=== PATIENT | female | born 1930 | race Caucasian/White ===

== ENCOUNTER 2017-12-16 11:46 | Inpatient (IN) ==
[2017-12-16 12:08] LABS: Basophils % 0.1 %; Eosinophils # 0.1 K/mcL (0.0-0.6); Eosinophils % 0.5 %; Hematocrit 32.7 % (35.3-44.9); Hemoglobin 11.4 g/dL (11.5-15.4); Immature Granulocytes % 0.7 % (0-4); Lymphocytes # 0.8 K/mcL (0.6-4.6); Lymphocytes % 7.3 %; Mean Corpuscular HGB Conc 34.9 g/dL (31.6-35.5); Mean Corpuscular Hemoglobin 30.2 pg (28.0-33.3); Mean Corpuscular Volume 86.5 fL (83.0-100.0); Mean Platelet Volume 7.8 fL (9.4-12.4); Monocytes # 1.6 K/mcL (0.0-1.3); Monocytes % 14.6 %; Neutrophils # 8.2 K/mcL (1.6-8.9); Platelet Count 347 K/mcL (140-400); Red Blood Count 3.78 M/mcL (3.82-4.97); Red Cell Distribution Width 12.7 % (11.5-14.5); Segmented Neutrophils % 76.8 %
[2017-12-16 12:16] LABS: INR 1.2; Prothrombin Time 13.8 Seconds (9.4-12.1)
--- NOTE | 2017-12-16 12:20 | Emergency Department Note ---
Disposition Forms: ED Satisfaction Letter Recheck wound or abnormal lab - General Chief Complaint: ED Recheck/Abnormal Lab/Rx Stated Complaint: LOW SODIUM Time Seen by Provider: 12/16/17 11:48 Source: patient Limitations: no limitations - Related Data Home Medications Medication Instructions Recorded Confirmed Atenolol [Tenormin] 50 mg PO BID 11/03/17 11/03/17 Gabapentin [Neurontin] 100 mg PO HS 11/03/17 11/03/17 Insulin Glargine [Lantus] 10 unit SQ HS 11/03/17 11/03/17 Polyethylene Glycol 3350 [MiraLAX] 17 gm PO DAILY 11/03/17 11/03/17 Ropinirole HCl [Requip] 0.25 mg PO HS 11/03/17 11/03/17 Saxagliptin HCl [Onglyza] 2.5 mg PO DAILY 11/03/17 11/03/17 Previous Rx's Medication Instructions Recorded HYDROcodone/Acet 5/325 mg [[place] 1 tab PO Q6H PRN 3 Days #10 tab 11/03/17 5-325 mg] Allergies Allergy/AdvReac Type Severity Reaction Status Date / Time codeine AdvReac Irritable Verified 11/03/17 17:50 dextromethorphan AdvReac Chest Pain Verified 11/03/17 17:50 [From Capmist DM] guaifenesin [From Capmist DM] AdvReac Chest Pain Verified 11/03/17 17:50 pseudoephedrine AdvReac Chest Pain Verified 11/03/17 17:50 [From Capmist DM] LOD AdvReac Hives Uncoded 12/16/17 11:47 Past Medical History - Past Medical History Medical history: Reports: arthritis, cancer, diabetes, glaucoma, hypertension, other Surgical history: Reports: appendectomy, cancer surgery (Facial skin cancer), cataract, cholecystectomy, orthopedic, other (Rotator cuff right shoulder) Psychiatric history: Reports: no psych history - Social History Smoking Status: Never smoker Alcohol use: Reports: none Drug use: Reports: none Physical Exam - General Limitations: no limitations General appearance: alert, in no apparent distress Course Vital Signs Temperature 97.8 F 12/16/17 11:48 Pulse Rate 71 12/16/17 11:48 Respiratory Rate 16 12/16/17 11:48 Blood Pressure 146/75 12/16/17 11:48 O2 Sat by Pulse Oximetry 97 12/16/17 11:48 Temperature 97.8 F 12/16/17 11:48 Pulse Rate 71 12/16/17 11:48 Respiratory Rate 16 12/16/17 11:48 Blood Pressure 146/75 12/16/17 11:48 O2 Sat by Pulse Oximetry 97 12/16/17 11:48 Oxygen Delivery Oxygen Delivery Room Air Recheck wound or abnormal lab - Lab Data Result diagrams: 12/16/17 12:05 Lab Results 12/16/17 Range/Units 12:05 WBC 10.7 (4.3-11.1) K/mcL RBC 3.78 L (3.82-4.97) M/mcL Hgb 11.4 L (11.5-15.4) g/dL Hct 32.7 L (35.3-44.9) % MCV 86.5 (83.0-100.0) fL MCH 30.2 (28.0-33.3) pg MCHC 34.9 (31.6-35.5) g/dL RDW 12.7 (11.5-14.5) % Plt Count 347 (140-400) K/mcL MPV 7.8 L (9.4-12.4) fL Immature Gran % 0.7 (0-4) % Seg Neutrophils % 76.8 % Lymphocytes % 7.3 % Monocytes % 14.6 % Eosinophils % 0.5 % Basophils % 0.1 % Neutrophils # 8.2 (1.6-8.9) K/mcL Lymphocytes # 0.8 (0.6-4.6) K/mcL Monocytes # 1.6 H (0.0-1.3) K/mcL Eosinophils # 0.1 (0.0-0.6) K/mcL Basophils # 0.0 (0.0-0.2) K/mcL
[2017-12-16 12:24] LABS: Alanine Aminotransferase 14 Units/L (7-52); Albumin 3.4 g/dL (3.5-5.7); Albumin/Globulin Ratio 0.9 (1.1-2.2); Alkaline Phosphatase 66 Units/L (34-104); Aspartate Amino Transferase 15 Units/L (13-39); BUN/Creatinine Ratio 18 (6-26); Bilirubin,Total 0.6 mg/dL (0.3-1.0); Blood Urea Nitrogen 14 mg/dL (8-23); Calcium 8.9 mg/dL (8.6-10.3); Carbon Dioxide 25 mEq/L (23-29); Chloride 88 mEq/L (98-107); Globulin 3.8 g/dL (2.4-3.5); Glucose 184 mg/dL (70-105); Osmolality,Calculated 257 (280-300); Potassium 4.7 mEq/L (3.5-5.1); Sodium 121 mEq/L (136-145); Total Protein 7.2 g/dL (6.4-8.9); eGFR For Non-African Americans > 60 (> 60)
[2017-12-16] MEDS ORDERED: 0.9 % Sodium Chloride 1,000 ML IVC SCH (14:31)
[2017-12-16] MEDS ORDERED: *HR* HYDROcodone/Acet 5/325 mg TABLET PO PRN (14:31)
[2017-12-16] MEDS ORDERED: Naloxone 0.4 MG/ML INJ IVP PRN (14:31)
--- NOTE | 2017-12-16 15:30 | Internal Med History&Physical ---
Date of Encounter: 12/16/17 Time of Encounter: 14:50 Assessment and Plan (1) Hyponatremia Current visit: Yes Status: Acute Suspect SIADH. Will order urine osmolality. (2) Headache Current visit: Yes Status: Acute Order head CT to further evaluate. Qualifiers: Headache type: unspecified Headache chronicity pattern: acute headache Intractability: intractable Qualified Code(s): R51 - Headache (3) Neck pain Current visit: Yes Status: Acute Order cervical spine CT to further evaluate. (4) Hypertension Current visit: Yes Status: Chronic Continue atenolol and monitor blood pressure. Qualifiers: Hypertension type: essential hypertension Qualified Code(s): I10 - Essential (primary) hypertension (5) DM type 2 (diabetes mellitus, type 2) Current visit: Yes Status: Chronic Continue Lantus/Levemir and Onglyza. Order Accu-Cheks with SSI. Qualifiers: Diabetes mellitus termite control service representative insulin use: with termite control service representative use Diabetes mellitus complication status: without complication Qualified Code(s): E11.9 - Type 2 diabetes mellitus without complications; Z79.4 - skilled nursing (current) use of insulin (6) Anemia Current visit: Yes Status: Acute Order anemia testing in a.m. Suspect due to daily use of aspirin 81 mg. Qualifiers: Anemia type: unspecified type Qualified Code(s): D64.9 - Anemia, unspecified (7) Cough Current visit: Yes Status: Acute Order chest CT to further evaluate. Internal Medicine - H&P: HPI Chief complaint: Hyponatremia Admitted From: Emergency Dept Plans for Post Hospital Care: Home History of present illness: Ms. Pastrana is a 87 year old female who was told to come to emergency room by her PCP Dr. Pereira after outpatient lab work showed hyponatremia with sodium level of 122. She had confirmed hyponatremic in emergency room with sodium 121. She was admitted to [facility] floor for ongoing care needs. She had mild hyponatremia on October 2017 labs with sodium levels of 129 and 131. She denies change in medication other than use of tramadol starting October 2017 which was prescribed for knee pain. Her last dose was December 13. She has had no excessive fluid ingestion or vomiting or diarrhea. She reports she has had constant headache with decreased hearing in her right ear for approximately 2 months. She has had sharp pain in her right neck for approximately he 6 weeks. She denies trauma or vision changes. Past Med Surg Social Fam HX - Past Medical History Medical history: arthritis, cancer, diabetes, glaucoma, hypertension, other Additional medical history: sleep apnea Psychiatric history: no psych history - Past Surgical History Surgical History: appendectomy, cancer surgery (Facial skin cancer), cataract, cholecystectomy, orthopedic, other (Rotator cuff right shoulder) Additional surgical history: right shoulder rotator cuff. cataract removal bilaterally. cancer removed from face - Social History Smoking Status: Never smoker Alcohol use: none Drug use: none Internal Medicine - H&P: Meds Atenolol [Tenormin] 50 mg PO BID 11/03/17 [History] Gabapentin [Neurontin] 100 mg PO HS 11/03/17 [History] HYDROcodone/Acet 5/325 mg [[place] 5-325 mg] 1 tab PO Q6H PRN 3 Days #10 tab 11/03 [Rx] Insulin Glargine [Lantus] 10 unit SQ HS 11/03/17 [History] Polyethylene Glycol 3350 [MiraLAX] 17 gm PO DAILY 11/03/17 [History] Ropinirole HCl [Requip] 0.25 mg PO HS 11/03/17 [History] Saxagliptin HCl [Onglyza] 2.5 mg PO DAILY 11/03/17 [History] 3 Allergy/AdvReac Type Severity Reaction Status Date / Time codeine AdvReac Irritable Verified 11/03/17 17:50 dextromethorphan AdvReac Chest Pain Verified 11/03/17 17:50 [From Capmist DM] guaifenesin [From Capmist DM] AdvReac Chest Pain Verified 11/03/17 17:50 pseudoephedrine AdvReac Chest Pain Verified 11/03/17 17:50 [From Capmist DM] LOD AdvReac Hives Uncoded 12/16/17 11:47 All Systems PM: A 10-system review of systems was performed and is negative for pertinent findings except as documented above in the HPI. Review of systems: Gen.: She states her weight has been stable the past few months Cardiovascular: She has history of hypertension but denies [place] heart failure angina DVT or pulmonary embolus. She had Regadenoson EST 06/29/2015 which showed no EKG or perfusion evidence of ischemia. LVEF was greater than 70%. Respiratory: She is a lifelong nonsmoker and has no known chronic lung disease. She has PRIYA and uses CPAP at bedtime GI: She has had cholecystectomy. She has irritable bowel syndrome which is minimally symptomatic. She reports colonoscopy in 2016 was generally unremarkable. 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 She denies large distribution strokes or seizures. Endocrine: She was diagnosed with DM 2 approximate 20 years ago. She denies thyroid disease or hyperlipidemia. Hematology/oncology: She denies blood disorders or cancers. She had anemia on labs in emergency room. Psychiatric: She denies anxiety depression or other mental health issues. [place] skeletal: She has DJD. She was at [facility] respite for several days October 2017 for pain in her knees. She denies gout or other bone joint or muscle disorders. - Constitutional Vitals: Temp Pulse Resp BP Pulse Ox 98.5 F 66 15 132/57 94 12/16/17 14:34 12/16/17 14:34 12/16/17 14:34 12/16/17 14:34 12/16/17 14:34 Exam: Gen.: She is a well-developed well-nourished female who appears in minimal distress at present time HEENT: Head is atraumatic and normocephalic. Eyes: EOMI. There is no scleral icterus. Mouth: Mucosa is moist. Ears: She has unremarkable external canals and TMs bilaterally. Neck: Supple. There is no pain on gentle flexion of the neck. She has reproduction of right neck pain pain on rotation of the head to the far left or far right. There is no thyromegaly or adenopathy noted. Heart: Regular without murmurs gallops or ectopics Lungs: No wheezes or crackles are heard. Abdomen: Soft and nontender. No masses or guarding are noted. Extremities: There is no cyanosis edema or clubbing noted. Dorsalis pedis and posttibial pulses are trace palpable bilaterally. Neurologic: Mental status: She is talkative and a good historian. Cranial nerves: Smile is symmetric. Forehead wrinkles bilaterally. Tongue protrudes midline. EOMI. Motor: There is no pronator drift. Cerebellar: Finger to nose is intact bilaterally. Skin: Warm and dry Internal Med - H&P Results - Labs CBC & Chem 7: 12/16/17 12:05 12/16/17 12:02
[2017-12-16] MEDS: 0.9 % Sodium Chloride 1,000 ML IVC SCH (15:40)
[2017-12-16 19:52] LABS: Bilirubin,Urine Negative (Negative); Blood,Urine Negative (Negative); Clarity,Urine Clear (Clear); Color,Urine Yellow (Yellow); Glucose,Urine (UA) >=1000 mg/dL (Normal); Ketones,Urine Negative (Negative); Leukocyte Esterase,Urine Negative (Negative); Nitrite,Urine Negative (Negative); Protein,Urine 30 mg/dL (Neg-Trace); Specific Gravity,Urine 1.015 (1.010-1.025); Urobilinogen,Urine Normal (Normal)
[2017-12-16 19:59] LABS: Hyaline Casts,Urine Few per lpf (None-Few); Squamous Epithelial Cell,Urine Moderate per lpf (None-Few)
[2017-12-16 20:00] LABS: Bacteria,Urine Moderate per hpf (None-Few); Mucus,Urine Moderate (Few); RBC,Urine 0-3 per hpf (0-3); WBC,Urine 0-3 per hpf (0-3)
[2017-12-16] MEDS: Gabapentin 100 MG CAPSULE PO SCH (21:21)
[2017-12-16] MEDS: rOPINIRole 0.25 MG TABLET PO SCH (21:21)
[2017-12-16 21:24] LABS: BUN/Creatinine Ratio 14 (6-26); Blood Urea Nitrogen 13 mg/dL (8-23); Calcium 8.3 mg/dL (8.6-10.3); Carbon Dioxide 26 mEq/L (23-29); Chloride 89 mEq/L (98-107); Glucose 147 mg/dL (70-105); Osmolality,Calculated 251 (280-300); Potassium 4.1 mEq/L (3.5-5.1); Sodium 119 mEq/L (136-145); eGFR For Non-African Americans 60 (> 60)
[2017-12-16] MEDS: Insulin DETEMIR 100 UNIT/ML X5UNITS SQ SCH (21:27)
[2017-12-16] MEDS: cefTRIAXone 1,000 MG in Water for inj. (sterile) 20 ML 10 ML IVPB SCH (23:03)
[2017-12-16] MEDS: Azithromycin 500 MG in D5% in Water 250 ML IVPB SCH (23:04)
[2017-12-17] MEDS: 0.9 % Sodium Chloride 1,000 ML IVC SCH ×2 (02:55→16:41)
[2017-12-17 05:27] LABS: Basophils % 0.2 %; Eosinophils # 0.1 K/mcL (0.0-0.6); Eosinophils % 0.7 %; Hematocrit 30.7 % (35.3-44.9); Hemoglobin 10.7 g/dL (11.5-15.4); Immature Granulocytes % 0.9 % (0-4); Lymphocytes # 0.8 K/mcL (0.6-4.6); Lymphocytes % 8.4 %; Mean Corpuscular HGB Conc 34.9 g/dL (31.6-35.5); Mean Corpuscular Hemoglobin 30.4 pg (28.0-33.3); Mean Corpuscular Volume 87.2 fL (83.0-100.0); Mean Platelet Volume 8.3 fL (9.4-12.4); Monocytes # 1.1 K/mcL (0.0-1.3); Monocytes % 12.6 %; Neutrophils # 6.9 K/mcL (1.6-8.9); Platelet Count 349 K/mcL (140-400); Red Blood Count 3.52 M/mcL (3.82-4.97); Red Cell Distribution Width 12.9 % (11.5-14.5); Segmented Neutrophils % 77.2 %
[2017-12-17 05:49] LABS: BUN/Creatinine Ratio 15 (6-26); Blood Urea Nitrogen 11 mg/dL (8-23); Calcium 8.3 mg/dL (8.6-10.3); Carbon Dioxide 25 mEq/L (23-29); Chloride 89 mEq/L (98-107); Glucose 119 mg/dL (70-105); Osmolality,Calculated 253 (280-300); Potassium 4.2 mEq/L (3.5-5.1); Sodium 121 mEq/L (136-145); eGFR For Non-African Americans > 60 (> 60)
[2017-12-17 05:57] LABS: Thyroid Stimulating Hormone 1.808 mcIU/mL (0.340-5.600)
[2017-12-17] MEDS: Lactobacillus 1 EACH CAP.SPRINK PO SCH ×2 (09:12→20:35)
[2017-12-17] MEDS: ONGLYZA 2.5 MG PO SCH (09:13)
[2017-12-17] MEDS: cefTRIAXone 1,000 MG in Water for inj. (sterile) 20 ML 10 ML IVPB SCH (09:13)
--- NOTE | 2017-12-17 09:58 | Internal Med Progress Note ---
Date of Encounter: 12/17/17 Time of Encounter: 09:50 - Assessment and plan (1) Hyponatremia Current Visit: Yes Status: Acute Assessment and plan: December 17. Urine osmolality pending. Serum sodium unchanged at 121 today. Continue normal saline IV for now. (2) Headache Current Visit: Yes Status: Acute Assessment and plan: December 17. Head CT unremarkable. Continue analgesics as prescribed. Qualifiers: Headache type: unspecified Headache chronicity pattern: acute headache Intractability: intractable Qualified Code(s): R51 - Headache (3) Neck pain Current Visit: Yes Status: Acute Assessment and plan: December 17. Cervical CT unremarkable. Continue analgesics. (4) Hypertension Current Visit: Yes Status: Chronic Assessment and plan: December 17. Continue atenolol. Qualifiers: Hypertension type: essential hypertension Qualified Code(s): I10 - Essential (primary) hypertension (5) DM type 2 (diabetes mellitus, type 2) Current Visit: Yes Status: Chronic Assessment and plan: December 17. Continue Levemir and Onglyza and Accu-Cheks with SSI. Qualifiers: Diabetes mellitus penitentiary insulin use: with transcription specialist use Diabetes mellitus complication status: without complication Qualified Code(s): E11.9 - Type 2 diabetes mellitus without complications; Z79.4 - body corporate manager (current) use of insulin (6) Anemia Current Visit: Yes Status: Acute Assessment and plan: December 17. Anemia testing showed iron 19, transferrin saturation 9%, transferrin 157, ferritin 270, B12 1266, and folate 12.0. Start ferrous sulfate with vitamin C in a.m. Qualifiers: Anemia type: unspecified type Qualified Code(s): D64.9 - Anemia, unspecified (7) Cough Current Visit: Yes Status: Acute Assessment and plan: December 17. Chest CT showed irregular opacity in the right upper lobe favoring inflammatory process or infection. Rocephin and Zithromax with lactobacillus were started yesterday. Continue antibiotics and monitor labs. Short-term noncontrast chest CT follow-up in 3 months recommended. - Subjective Interval history: December 17. She states she thinks her vision is slightly decreased but has no other new complaints. - Constitutional Vitals: Temp Pulse Resp BP Pulse Ox 98.4 F 71 16 129/61 98 12/17/17 03:00 12/17/17 07:19 12/17/17 07:19 12/17/17 07:19 12/17/17 07:19 Exam: She is resting comfortably in bed and appears in no acute distress. Her affect is bright and cheerful. I reviewed her medications. I discussed pertinent lab and CT findings with her. Internal Medicine: Result - Labs CBC & Chem 7: 12/17/17 04:50 12/17/17 04:50 Labs: Short CBC 12/17/17 Range/Units 04:50 WBC 8.9 (4.3-11.1) K/mcL Hgb 10.7 L (11.5-15.4) g/dL Hct 30.7 L (35.3-44.9) % Plt Count 349 (140-400) K/mcL Neutrophils # 6.9 (1.6-8.9) K/mcL BMP 12/16/17 12/17/17 20:47 04:50 Sodium 119 L* 121 L Potassium 4.1 4.2 Chloride 89 L 89 L Carbon Dioxide 26 25 BUN 13 11 Creatinine 0.90 0.72 Glucose 147 H 119 H Calcium 8.3 L 8.3 L Urine 12/16/17 Range/Units 18:40 Urine Color Yellow (Yellow) Urine Clarity Clear (Clear) Urine pH 7.0 (5.0-8.0) pH Units Ur Specific [place] 1.015 (1.010-1.025) Urine Protein 30 H (Neg-Trace) mg/dL Urine Glucose (UA) >=1000 H (Normal) mg/dL - ABG Interpretation ABG results: PT/INR, D-dimer PT 13.8 Seconds (9.4-12.1) H 12/16/17 12:02 - Impressions Impressions Chest CT 12/16/17 15:20 IMPRESSION: Irregular opacity in the right upper lobe favoring an inflammatory process or infection. Short-term noncontrast chest CT follow-up in 3 months is recommended to ensure resolution and exclude neoplastic disease. D/ / Patricio Dangelo / Patricio Dangelo Interpreting Provider: Patricio Dangelo Head CT 12/16/17 15:21 IMPRESSION: No acute intracranial abnormality. D/ / Henri Cifuentes MD / Henri Cifuentes MD Interpreting Provider: Henri Cifuentes MD Cervical Spine CT 12/16/17 15:22 IMPRESSION: No acute abnormality of the cervical spine. D/ / Patricio Dangelo / Patricio Dangelo Interpreting Provider: Patricio Dangelo Consult Discharge Plan - Plan Referrals: Champ Pereira DO [Primary Care Provider] - 1 week
[2017-12-17] MEDS ORDERED: 0.9 % Sodium Chloride 1,000 ML ONE (16:37)
[2017-12-17] MEDS: Insulin DETEMIR 100 UNIT/ML X5UNITS SQ SCH (20:35)
[2017-12-17] MEDS: rOPINIRole 0.25 MG TABLET PO SCH (20:35)
[2017-12-17] MEDS: Gabapentin 100 MG CAPSULE PO SCH (20:35)
[2017-12-17] MEDS: Azithromycin 500 MG in D5% in Water 250 ML IVPB SCH (22:31)
[2017-12-18] MEDS: 0.9 % Sodium Chloride 1,000 ML IVC SCH (04:15)
[2017-12-18] MEDS: Ascorbic Acid 500 MG TABLET PO SCH (06:20)
[2017-12-18 06:33] LABS: Basophils % 0.2 %; Eosinophils % 0.1 %; Hematocrit 27.6 % (35.3-44.9); Hemoglobin 9.7 g/dL (11.5-15.4); Immature Granulocytes % 0.7 % (0-4); Lymphocytes # 0.6 K/mcL (0.6-4.6); Lymphocytes % 7.9 %; Mean Corpuscular HGB Conc 35.1 g/dL (31.6-35.5); Mean Corpuscular Hemoglobin 30.8 pg (28.0-33.3); Mean Corpuscular Volume 87.6 fL (83.0-100.0); Mean Platelet Volume 8.4 fL (9.4-12.4); Monocytes # 1.1 K/mcL (0.0-1.3); Monocytes % 13.9 %; Neutrophils # 6.2 K/mcL (1.6-8.9); Platelet Count 285 K/mcL (140-400); Red Blood Count 3.15 M/mcL (3.82-4.97); Red Cell Distribution Width 12.8 % (11.5-14.5); Segmented Neutrophils % 77.2 %
[2017-12-18 06:54] LABS: BUN/Creatinine Ratio 16 (6-26); Blood Urea Nitrogen 10 mg/dL (8-23); Calcium 7.9 mg/dL (8.6-10.3); Carbon Dioxide 23 mEq/L (23-29); Chloride 94 mEq/L (98-107); Glucose 99 mg/dL (70-105); Osmolality,Calculated 253 (280-300); Potassium 4.1 mEq/L (3.5-5.1); Sodium 122 mEq/L (136-145); eGFR For Non-African Americans > 60 (> 60)
[2017-12-18] MEDS: cefTRIAXone 1,000 MG in Water for inj. (sterile) 20 ML 10 ML IVPB SCH (08:54)
[2017-12-18] MEDS: Lactobacillus 1 EACH CAP.SPRINK PO SCH ×2 (08:54→20:53)
[2017-12-18] MEDS: ONGLYZA 2.5 MG PO SCH (08:55)
--- NOTE | 2017-12-18 12:52 | Internal Med Progress Note ---
Date of Encounter: 12/18/17 Time of Encounter: 12:45 - Assessment and plan (1) Hyponatremia Current Visit: Yes Status: Acute Assessment and plan: December 17. Urine osmolality pending. Serum sodium unchanged at 121 today. Continue normal saline IV for now. December 18. 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 Will start salt tablets and Samsca. (2) Headache Current Visit: Yes Status: Acute Assessment and plan: December 17. Head CT unremarkable. Continue analgesics as prescribed. December 18. Will schedule Tylenol. Qualifiers: Headache type: unspecified Headache chronicity pattern: acute headache Intractability: intractable Qualified Code(s): R51 - Headache (3) Neck pain Current Visit: Yes Status: Acute Assessment and plan: December 17. Cervical CT unremarkable. Continue analgesics. December 18. As above (4) Hypertension Current Visit: Yes Status: Chronic Assessment and plan: December 17. Continue atenolol. Qualifiers: Hypertension type: essential hypertension Qualified Code(s): I10 - Essential (primary) hypertension (5) DM type 2 (diabetes mellitus, type 2) Current Visit: Yes Status: Chronic Assessment and plan: December 17. Continue Levemir and Onglyza and Accu-Cheks with SSI. Qualifiers: Diabetes mellitus rodent exterminator insulin use: with rodent exterminator use Diabetes mellitus complication status: without complication Qualified Code(s): E11.9 - Type 2 diabetes mellitus without complications; Z79.4 - senior care (current) use of insulin (6) Anemia Current Visit: Yes Status: Acute Assessment and plan: December 17. Anemia testing showed iron 19, transferrin saturation 9%, transferrin 157, ferritin 270, B12 1266, and folate 12.0. Start ferrous sulfate with vitamin C in a.m. Qualifiers: Anemia type: unspecified type Qualified Code(s): D64.9 - Anemia, unspecified (7) Cough Current Visit: Yes Status: Acute Assessment and plan: December 17. Chest CT showed irregular opacity in the right upper lobe favoring inflammatory process or infection. Rocephin and Zithromax with lactobacillus were started yesterday. Continue antibiotics and monitor labs. Short-term noncontrast chest CT follow-up in 3 months recommended. - Subjective Interval history: December 17. She states she thinks her vision is slightly decreased but has no other new complaints. December 18. She has no new complaints. She denies significant change since yesterday. - Constitutional Vitals: Temp Pulse Resp BP Pulse Ox 98.1 F 79 15 146/67 96 12/18/17 09:00 12/18/17 09:00 12/18/17 09:00 12/18/17 09:00 12/18/17 09:00 Exam: She is resting comfortable on the side of bed and appears in no acute distress. She does have occasional wince stating there is pain in her neck. Her affect is overall cheerful. I reviewed her medications and lab results. Internal Medicine: Result - Labs CBC & Chem 7: 12/18/17 05:45 12/18/17 05:45 Labs: Short CBC 12/18/17 Range/Units 05:45 WBC 8.1 (4.3-11.1) K/mcL Hgb 9.7 L (11.5-15.4) g/dL Hct 27.6 L (35.3-44.9) % Plt Count 285 (140-400) K/mcL Neutrophils # 6.2 (1.6-8.9) K/mcL BMP 12/18/17 05:45 Sodium 122 L Potassium 4.1 Chloride 94 L Carbon Dioxide 23 BUN 10 Creatinine 0.64 Glucose 99 Calcium 7.9 L - ABG Interpretation ABG results: PT/INR, D-dimer PT 13.8 Seconds (9.4-12.1) H 12/16/17 12:02 Consult Discharge Plan - Plan Referrals: Champ Pereira DO [Primary Care Provider] - 1 week
[2017-12-18] MEDS ORDERED: Tolvaptan 15 MG TABLET PO SCH (13:00)
[2017-12-18] MEDS: Tolvaptan 15 MG TABLET PO SCH (16:32)
[2017-12-18] MEDS: rOPINIRole 0.25 MG TABLET PO SCH (20:53)
[2017-12-18] MEDS: Insulin DETEMIR 100 UNIT/ML X5UNITS SQ SCH (20:54)
[2017-12-18] MEDS: Gabapentin 100 MG CAPSULE PO SCH (20:54)
[2017-12-18] MEDS: Azithromycin 500 MG in D5% in Water 250 ML IVPB SCH (22:59)
[2017-12-19 05:21] LABS: Basophils % 0.1 %; Eosinophils # 0.1 K/mcL (0.0-0.6); Eosinophils % 1.3 %; Hematocrit 28.9 % (35.3-44.9); Hemoglobin 9.9 g/dL (11.5-15.4); Immature Granulocytes % 0.8 % (0-4); Lymphocytes # 0.7 K/mcL (0.6-4.6); Lymphocytes % 8.7 %; Mean Corpuscular HGB Conc 34.3 g/dL (31.6-35.5); Mean Corpuscular Hemoglobin 30.1 pg (28.0-33.3); Mean Corpuscular Volume 87.8 fL (83.0-100.0); Mean Platelet Volume 8.4 fL (9.4-12.4); Monocytes # 1.2 K/mcL (0.0-1.3); Neutrophils # 5.7 K/mcL (1.6-8.9); Platelet Count 313 K/mcL (140-400); Red Blood Count 3.29 M/mcL (3.82-4.97); Red Cell Distribution Width 12.8 % (11.5-14.5); Segmented Neutrophils % 74.1 %
[2017-12-19 05:48] LABS: BUN/Creatinine Ratio 17 (6-26); Blood Urea Nitrogen 12 mg/dL (8-23); Carbon Dioxide 24 mEq/L (23-29); Chloride 100 mEq/L (98-107); Glucose 120 mg/dL (70-105); Osmolality,Calculated 273 (280-300); Potassium 4.3 mEq/L (3.5-5.1); Sodium 131 mEq/L (136-145); eGFR For Non-African Americans > 60 (> 60)
[2017-12-19] MEDS: Ascorbic Acid 500 MG TABLET PO SCH (06:02)
[2017-12-19] MEDS: ONGLYZA 2.5 MG PO SCH (08:05)
[2017-12-19] MEDS: Lactobacillus 1 EACH CAP.SPRINK PO SCH ×2 (08:10→21:28)
[2017-12-19] MEDS: cefTRIAXone 1,000 MG in Water for inj. (sterile) 20 ML 10 ML IVPB SCH (08:11)
[2017-12-19] MEDS: Tolvaptan 15 MG TABLET PO SCH (08:12)
[2017-12-19] MEDS ORDERED: *HR* HYDROcodone/Acet 5/325 mg TABLET PO PRN (14:16)
--- NOTE | 2017-12-19 16:35 | Internal Med Progress Note ---
Date of Encounter: 12/19/17 Time of Encounter: 16:25 - Assessment and plan (1) Hyponatremia Current Visit: Yes Status: Acute Assessment and plan: December 17. Urine osmolality pending. Serum sodium unchanged at 121 today. Continue normal saline IV for now. December 18. 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 Will start salt tablets and Samsca. December 19. Significantly improved with sodium now 131. Continue salt tablets and Samsca. (2) Headache Current Visit: Yes Status: Acute Assessment and plan: December 17. Head CT unremarkable. Continue analgesics as prescribed. December 18. Will schedule Tylenol. December 19. She stated Tylenol did not help her headache and she declined it. Qualifiers: Headache type: unspecified Headache chronicity pattern: acute headache Intractability: intractable Qualified Code(s): R51 - Headache (3) Neck pain Current Visit: Yes Status: Acute Assessment and plan: December 17. Cervical CT unremarkable. Continue analgesics. December 18. As above (4) Hypertension Current Visit: Yes Status: Chronic Assessment and plan: December 17. Continue atenolol. Qualifiers: Hypertension type: essential hypertension Qualified Code(s): I10 - Essential (primary) hypertension (5) DM type 2 (diabetes mellitus, type 2) Current Visit: Yes Status: Chronic Assessment and plan: December 17. Continue Levemir and Onglyza and Accu-Cheks with SSI. Qualifiers: Diabetes mellitus chcf insulin use: with chcf use Diabetes mellitus complication status: without complication Qualified Code(s): E11.9 - Type 2 diabetes mellitus without complications; Z79.4 - exterminator termite (current) use of insulin (6) Anemia Current Visit: Yes Status: Acute Assessment and plan: December 17. Anemia testing showed iron 19, transferrin saturation 9%, transferrin 157, ferritin 270, B12 1266, and folate 12.0. Start ferrous sulfate with vitamin C in a.m. Qualifiers: Anemia type: unspecified type Qualified Code(s): D64.9 - Anemia, unspecified (7) Cough Current Visit: Yes Status: Acute Assessment and plan: December 17. Chest CT showed irregular opacity in the right upper lobe favoring inflammatory process or infection. Rocephin and Zithromax with lactobacillus were started yesterday. Continue antibiotics and monitor labs. Short-term noncontrast chest CT follow-up in 3 months recommended. - Subjective Interval history: December 17. She states she thinks her vision is slightly decreased but has no other new complaints. December 18. She has no new complaints. She denies significant change since yesterday. December 19. She has no new complaints. Her neck pain is unchanged. - Constitutional Vitals: Temp Pulse Resp BP Pulse Ox 98.5 F 62 16 129/51 98 12/19/17 09:00 12/19/17 09:00 12/19/17 09:00 12/19/17 09:00 12/19/17 11:23 Exam: She is resting comfortably on the side of the bed. Her affect is bright and cheerful. I reviewed her medications. I discussed pertinent lab results. Internal Medicine: Result - Labs CBC & Chem 7: 12/19/17 04:34 12/19/17 04:34 Labs: Short CBC 12/19/17 Range/Units 04:34 WBC 7.7 (4.3-11.1) K/mcL Hgb 9.9 L (11.5-15.4) g/dL Hct 28.9 L (35.3-44.9) % Plt Count 313 (140-400) K/mcL Neutrophils # 5.7 (1.6-8.9) K/mcL BMP 12/19/17 04:34 Sodium 131 L D Potassium 4.3 Chloride 100 Carbon Dioxide 24 BUN 12 Creatinine 0.69 Glucose 120 H Calcium 9.0 - ABG Interpretation ABG results: PT/INR, D-dimer PT 13.8 Seconds (9.4-12.1) H 12/16/17 12:02 Consult Discharge Plan - Plan Referrals: Champ Pereira DO [Primary Care Provider] - 1 week
[2017-12-19] MEDS: rOPINIRole 0.25 MG TABLET PO SCH (21:27)
[2017-12-19] MEDS: Insulin DETEMIR 100 UNIT/ML X5UNITS SQ SCH (21:28)
[2017-12-19] MEDS: Gabapentin 100 MG CAPSULE PO SCH (21:28)
[2017-12-19] MEDS ORDERED: Azithromycin 250 MG TABLET PO SCH (22:00)
[2017-12-19] MEDS: 0.9 % Sodium Chloride 1,000 ML IVC SCH (22:12)
[2017-12-20] MEDS: Ascorbic Acid 500 MG TABLET PO SCH (06:49)
[2017-12-20] MEDS: Lactobacillus 1 EACH CAP.SPRINK PO SCH (08:44)
[2017-12-20] MEDS: Tolvaptan 15 MG TABLET PO SCH (08:44)
[2017-12-20] MEDS: cefTRIAXone 1,000 MG in Water for inj. (sterile) 20 ML 10 ML IVPB SCH (08:47)
[2017-12-20] MEDS: ONGLYZA 2.5 MG PO SCH (08:47)
[2017-12-20 15:17] VITALS: BP 121/61
--- NOTE | 2017-12-20 15:54 | Discharge Summary ---
Date of Encounter: 12/20/17 Time of Encounter: 15:40 - Discharge Diagnosis (1) Hyponatremia Priority: Primary Status: Acute (2) Headache Priority: Secondary Status: Acute Qualifiers: Headache type: unspecified Headache chronicity pattern: acute headache Intractability: intractable Qualified Code(s): R51 - Headache (3) Neck pain Priority: Secondary Status: Acute (4) Hypertension Priority: Secondary Status: Chronic Qualifiers: Hypertension type: essential hypertension Qualified Code(s): I10 - Essential (primary) hypertension (5) DM type 2 (diabetes mellitus, type 2) Priority: Secondary Status: Chronic Qualifiers: Diabetes mellitus superintendent container terminal insulin use: with superintendent container terminal use Diabetes mellitus complication status: without complication Qualified Code(s): E11.9 - Type 2 diabetes mellitus without complications; 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 Pastrana is a 87 year old female who was told to come to emergency room by her PCP Dr. Pereira after outpatient lab work showed hyponatremia with sodium level of 122. She had confirmed hyponatremic in emergency room with sodium 121. She was admitted to [facility] floor for ongoing care needs. Initial orders were written by the emergency room physician. I saw her on December 16 and performed the history and physical. 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 Sodium level rafia to 131 with use of salt tablets and Samsca. She will not continue these at discharge since her sodium is improved. Labs will be monitored at snf. Chest CT showed right upper lobe irregular opacity favoring inflammatory process/infection. Short-term noncontrast chest CT follow-up in 3 months was recommended to exclude neoplastic disease. She was treated with IV antibiotics for possible pneumonia. WBC remained normal without left shift. She will continue with antibiotics and probiotic for 2 additional days at discharge. Anemia testing showed iron 19, transferrin saturation 9%, transferrin 157, ferritin 270, B12 1000 166, and folate 12.0. She was started on ferrous sulfate with vitamin C and these will be continued at discharge. TSH was normal at 1.808. She had physical therapy and occupational therapy evaluation. She had persistent intermittent headache and pain in her neck. These will be further monitored at the snf. On December 20 arrangements were complete for her to be discharged to [facility] for ongoing care needs. She will follow with me there. - Time Spent with Patient Total time spent providing and/or coordinating discharge services: - Discharge Medications Home Medications: Insulin Glargine [Lantus] 10 unit SQ HS 11/03/17 [History] Ropinirole HCl [Requip] 0.5 mg PO HS 11/03/17 [History] Acetaminophen [Tylenol] 500 mg PO Q4HWA PRN tablet 12/20/17 [Rx] Ascorbic Acid [Vitamin C] 500 mg PO 0630 tablet 12/20/17 [Rx] Azithromycin [Zithromax] 500 mg PO Q24H 2 Days tablet 12/20/17 [Rx] Ferrous Sulfate 325 mg PO 0630 tablet 12/20/17 [Rx] Gabapentin [Neurontin] 100 mg PO BID 30 Days #60 12/20/17 [Rx] Insulin DETEMIR [Levemir] 10 unit SQ HS [id number] 12/20/17 [Rx] Lactobacillus [Culturelle] 1 each PO BID 2 Days cap.sprink 12/20/17 [Rx] Allergies/Adverse Reactions: 3 Allergy/AdvReac Type Severity Reaction Status Date / Time codeine AdvReac Irritable Verified 11/03/17 17:50 dextromethorphan AdvReac Chest Pain Verified 11/03/17 17:50 [From Capmist DM] guaifenesin [From Capmist DM] AdvReac Chest Pain Verified 11/03/17 17:50 pseudoephedrine AdvReac Chest Pain Verified 11/03/17 17:50 [From Capmist DM] LOD AdvReac Hives Uncoded 12/16/17 11:47 Date of admission: 12/17/17 15:35 Primary care physician: Champ Pereira DO Consults: 12/18/17 12:48 Consult to Occupational Therapy [CONS] Routine Comment: Evaluate, develop and implement POC Reason for Consult: Weakness Does patient have active BEDREST order?: No Is patient medically & hemodynamically stable?: Yes Patient assessed for mobility or mobilized this visit?: Yes Consult to Physical Therapy [CONS] Routine Comment: Evaluate, develop and implement POC Reason for Consult: Weakness Does patient have active BEDREST order?: No Is patient medically & hemodynamically stable?: Yes Patient assessed for mobility or mobilized this visit?: Yes - Constitutional Vitals: Temp Pulse Resp BP Pulse Ox 98.0 F 80 14 121/61 95 12/20/17 15:17 12/20/17 15:17 12/20/17 15:17 12/20/17 15:17 12/20/17 15:17 - Patient Status Disposition: Transfer SNF - Discharge Instructions - Diet and Activity Activity: as per physical therapy Diet: diabetic diet
--- NOTE | 2017-12-20 16:01 | Physician Discharge Referral ---
ExtendedCare Referral Info Transfer To: [facility] Provider in Charge: Adam Provider in Charge after Transfer: PCP (Adam) - Diagnosis (1) Hyponatremia Priority: Primary Status: Acute (2) Headache Priority: Secondary Status: Acute (3) Neck pain Priority: Secondary Status: Acute (4) Hypertension Priority: Secondary Status: Chronic (5) DM type 2 (diabetes mellitus, type 2) Priority: Secondary Status: Chronic (6) Anemia Priority: Secondary Status: Acute (7) Cough Priority: Secondary Status: Acute Prognosis: Good Aware of Diagnosis: Patient Aware of Prognosis: Patient - Transfer Medications Home Medications: Insulin Glargine [Lantus] 10 unit SQ HS 11/03/17 [History] Ropinirole HCl [Requip] 0.5 mg PO HS 11/03/17 [History] Acetaminophen [Tylenol] 500 mg PO Q4HWA PRN tablet 12/20/17 [Rx] Ascorbic Acid [Vitamin C] 500 mg PO 0630 tablet 12/20/17 [Rx] Azithromycin [Zithromax] 500 mg PO Q24H 2 Days tablet 12/20/17 [Rx] Ferrous Sulfate 325 mg PO 0630 tablet 12/20/17 [Rx] Gabapentin [Neurontin] 100 mg PO BID 30 Days #60 12/20/17 [Rx] Insulin DETEMIR [Levemir] 10 unit SQ HS [id number] 12/20/17 [Rx] Lactobacillus [Culturelle] 1 each PO BID 2 Days cap.sprink 12/20/17 [Rx] Allergies/Adverse Reactions: 3 Allergy/AdvReac Type Severity Reaction Status Date / Time codeine AdvReac Irritable Verified 11/03/17 17:50 dextromethorphan AdvReac Chest Pain Verified 11/03/17 17:50 [From Capmist DM] guaifenesin [From Capmist DM] AdvReac Chest Pain Verified 11/03/17 17:50 pseudoephedrine AdvReac Chest Pain Verified 11/03/17 17:50 [From Capmist DM] LOD AdvReac Hives Uncoded 12/16/17 11:47 - Respiratory Orders Smoking Cessation: Smoking cessation has been advised. For more information, call the [place] Tobacco Quit Line at 7-689-QUXS-NOW. - Lab Orders Lab Orders: Other (include drug levels w/frequency) (CBC with differential, BMP in 5 days) - Rehabiliation Orders Rehab Potential: Good Rehab Orders: Evaluation for Physical Therapy, Evaluation for Occupational Therapy - Diet Orders No Concentrated Sweets CERTIFICATION: I certify that the transfer of the above named patient to an Extended Care Facility is necessary for the continuing treatment of the diagnosis listed. The above information is true and accurate reflection of patient's current condition. Confidential - Redisclosure prohibited without a patient's written consent.
== END 2017-12-20 17:56 | DRG 645 ==
LOC: INPPIK 11:46 → EMEROOPIK 11:46 → INPPIK 14:09
PROVIDERS: ADMIT Internal Medicine; ATTEND Internal Medicine

== ENCOUNTER 2020-08-17 11:13 | Observation (INO) ==
[2020-08-17 11:50] LABS: Basophils % 0.4 %; Eosinophils # 0.1 K/mcL (0.0-0.6); Eosinophils % 0.9 %; Hematocrit 35.3 % (35.3-44.9); Hemoglobin 12.1 g/dL (11.5-15.4); Immature Granulocytes % 0.7 % (0-4); Lymphocytes # 0.7 K/mcL (0.6-4.6); Lymphocytes % 7.4 %; Mean Corpuscular HGB Conc 34.3 g/dL (31.6-35.5); Mean Corpuscular Hemoglobin 30.3 pg (28.0-33.3); Mean Corpuscular Volume 88.5 fL (83.0-100.0); Mean Platelet Volume 8.5 fL (9.4-12.4); Monocytes # 0.8 K/mcL (0.0-1.3); Monocytes % 8.2 %; Neutrophils # 8.2 K/mcL (1.6-8.9); Platelet Count 327 K/mcL (140-400); Red Blood Count 3.99 M/mcL (3.82-4.97); Red Cell Distribution Width 13.5 % (11.5-14.5); Segmented Neutrophils % 82.4 %
[2020-08-17 12:07] LABS: Activated Partial Thrombo Time 33.4 Seconds (26.0-36.0); Prothrombin Time 12.1 Seconds (9.4-12.1)
[2020-08-17 12:09] LABS: BUN/Creatinine Ratio 36 (6-26); Blood Urea Nitrogen 33 mg/dL (8-23); Calcium 9.4 mg/dL (8.6-10.3); Carbon Dioxide 28 mEq/L (23-29); Chloride 87 mEq/L (98-107); Glucose 194 mg/dL (70-105); Osmolality,Calculated 269 (280-300); Potassium 4.3 mEq/L (3.5-5.1); Sodium 123 mEq/L (136-145); eGFR For African Americans > 60 (> 60); eGFR For Non-African Americans 58 (> 60)
[2020-08-17 12:11] LABS: Troponin I < 0.03 ng/mL (< 0.04)
[2020-08-17] MEDS ORDERED: 0.9 % Sodium Chloride 1,000 ML IVC ONE (12:28)
[2020-08-17] MEDS ORDERED: Isovue-370 500 ML BOTTLE IVP ONE (12:28)
[2020-08-17] MEDS ORDERED: Ondansetron 4 MG/2 ML VIAL IVP PRN (14:24)
[2020-08-17] MEDS ORDERED: Naloxone 0.4 MG/ML INJ IVP PRN (14:24)
[2020-08-17] MEDS ORDERED: Acetaminophen 325 MG TABLET PO PRN (14:24)
[2020-08-17] MEDS ORDERED: D5% in Water 1,000 ML IVC PRN (14:27)
[2020-08-17] MEDS ORDERED: *HR* Dextrose 50 % in Water (Vial) 50 ML VIAL IVP PRN (14:27)
[2020-08-17] MEDS ORDERED: Dextrose Gel 15 GM/37.5 ML TUBE PO PRN ×2 (14:27)
[2020-08-17] MEDS: Insulin LISPRO 300 UNITS/3 ML VIAL SUBQ SCH (16:58)
[2020-08-17] MEDS: Gabapentin 100 MG CAPSULE PO SCH ×2 (17:00→19:49)
[2020-08-17 17:34] LABS: Estimated Average Glucose 163 mg/dl; Hemoglobin A1C 7.3 %
[2020-08-17] MEDS ORDERED: rOPINIRole 0.25 MG TABLET PO SCH ×2 (18:00→21:00)
[2020-08-17] MEDS ORDERED: Nitroglycerin 0.4 MG TAB.SUBL SL PRN (19:16)
[2020-08-17] MEDS ORDERED: Ipratropium/Albuterol Neb 3 ML IH PRN (19:16)
[2020-08-17] MEDS: atenoloL 50 MG TABLET PO SCH (19:49)
[2020-08-17] MEDS: Lactobacillus 1 EACH CAP.SPRINK PO SCH (19:49)
[2020-08-17] MEDS: Insulin DETEMIR 100 UNIT/ML X5UNITS SUBQ SCH (19:51)
[2020-08-17] MEDS ORDERED: Insulin LISPRO 300 UNITS/3 ML VIAL SUBQ SCH (21:00)
[2020-08-17 21:04] LABS: BUN/Creatinine Ratio 33 (6-26); Blood Urea Nitrogen 26 mg/dL (8-23); Calcium 9.1 mg/dL (8.6-10.3); Carbon Dioxide 24 mEq/L (23-29); Chloride 90 mEq/L (98-107); Glucose 134 mg/dL (70-105); Osmolality,Calculated 265 (280-300); Potassium 4.1 mEq/L (3.5-5.1); Sodium 124 mEq/L (136-145); eGFR For African Americans > 60 (> 60); eGFR For Non-African Americans > 60 (> 60)
[2020-08-18 07:12] LABS: Hematocrit 30.6 % (35.3-44.9); Hemoglobin 10.4 g/dL (11.5-15.4); Mean Corpuscular Hemoglobin 30.4 pg (28.0-33.3); Mean Corpuscular Volume 89.5 fL (83.0-100.0); Mean Platelet Volume 8.8 fL (9.4-12.4); Platelet Count 289 K/mcL (140-400); Red Blood Count 3.42 M/mcL (3.82-4.97); Red Cell Distribution Width 13.8 % (11.5-14.5); White Blood Count 8.7 K/mcL (4.3-11.1)
[2020-08-18 07:28] VITALS: BP 134/72
[2020-08-18 07:35] LABS: BUN/Creatinine Ratio 31 (6-26); Blood Urea Nitrogen 29 mg/dL (8-23); Calcium 8.7 mg/dL (8.6-10.3); Carbon Dioxide 26 mEq/L (23-29); Chloride 91 mEq/L (98-107); Chol/HDL Ratio 2.6 (0-4.9); Cholesterol 110 mg/dL (< 200); Glucose 110 mg/dL (70-105); HDL Cholesterol 43 mg/dL (40-59); LDL Cholesterol,Calculated 50 mg/dL (< 100); Magnesium 1.9 mg/dL (1.6-2.6); Osmolality,Calculated 262 (280-300); Potassium 4.1 mEq/L (3.5-5.1); Sodium 123 mEq/L (136-145); Triglycerides 87 mg/dL (< 150); eGFR For African Americans > 60 (> 60); eGFR For Non-African Americans 57 (> 60)
[2020-08-18] MEDS: Insulin LISPRO 300 UNITS/3 ML VIAL SUBQ SCH ×2 (07:44→11:34)
[2020-08-18] MEDS: Insulin DETEMIR 100 UNIT/ML X5UNITS SUBQ SCH (08:45)
[2020-08-18] MEDS: Lactobacillus 1 EACH CAP.SPRINK PO SCH (08:46)
[2020-08-18] MEDS: atenoloL 50 MG TABLET PO SCH (08:46)
[2020-08-18] MEDS: Gabapentin 100 MG CAPSULE PO SCH ×2 (08:46→13:51)
[2020-08-18] MEDS ORDERED: Aspirin Enteric Coated 81 MG Tablet PO SCH (09:00)
[2020-08-18] MEDS ORDERED: Tolvaptan 15 MG TABLET PO ONE (13:42)
== END 2020-08-18 16:15 | disposition home or self-care (01) ==
LOC: EMEROOPIK 11:13 → INPPIK 11:13
PROVIDERS: ADMIT Family Medicine; ATTEND Family Medicine